=== PATIENT | female | born 1985 | race Caucasian/White ===

== ENCOUNTER 2022-02-03 00:23 | Emergency (ER) | payer SELFPAY ==
[2022-02-03] MEDS ORDERED: TETANUS & DIPHTHERIA TOX,ADULT 0.5 ML VIAL ONE (00:37)
[2022-02-03] MEDS ORDERED: NA CHLORIDE 0.9% 1,000 ML ONE ×2 (00:40→00:53)
[2022-02-03] MEDS ORDERED: NA CHLORIDE 0.9% 250 ML ONE (00:53)
[2022-02-03 01:02] LABS: Hematocrit 32.3 % (36.0-45.0); Lymphocytes % 42.9 % (15.3-44.8); MPV 7.5 fL (7.6-11.3); RBC Red Blood Cell Count 4.53 M/uL (3.86-4.86)
[2022-02-03 01:03] LABS: Protime INR 1.02
[2022-02-03] MEDS ORDERED: ONDANSETRON 4 MG/2 ML VIAL ONE (01:03)
[2022-02-03 01:16] LABS: ALT/SGPT 26 U/L (12-78); AST/SGOT 14 U/L (15-37); Albumin 3.7 g/dL (3.4-5.0); Alkaline Phosphatase 82 U/L (45-117); BUN Blood Urea Nitrogen 12 mg/dL (7-18); Bicarbonate 18 mmol/L (21-32); Bilirubin Total 0.2 mg/dL (0.2-1.0); Glomerular Filtration Rate 72 ml/min (=/>90); Glucose Level 161 mg/dL (74-106); Potassium 3.2 mmol/L (3.5-5.1); Protein, Total 7.3 g/dL (6.4-8.2); Sodium Level 139 mmol/L (136-145)
[2022-02-03 01:18] LABS: Bilirubin Direct < 0.1 mg/dL (0-0.2)
--- NOTE | 2022-02-03 02:07 | EDPHYS ---
Physician Documentation [facility] Name: Joao Juares Age: 36 yrs Sex: Female : 1985 Arrival Date: 02/03/2022 Time: 00:24 Bed 2 Private MD: ED Physician Salazar Escobar HPI: 02/03 01:25 This 36 yrs old Female presents to ER via Wheelchair with complaints of Right arm mh7 injury. 01:25 Patient's family member brought her to ER after he found her laying on floor at her mh7 place with injury and a lot of blood at scene. Patient initially not answering questions and appeared confused in the ER.. 01:25 Trauma demographics: County: The injury occurred in [place] Location of Injury: The mh7 injury occurred at an unknown, Date: February 02, 2022. Mechanism of injury: Penetrating trauma: inflicted by unknown, that penetrated penetrated an unknown depth. Associated injuries: The patient sustained right forearm, laceration, 8 cm(s). Onset: The symptoms/episode began/occurred today, at an unknown time. 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 - Social history:: Smoking status: Patient denies any tobacco usage or history of. Patient uses alcohol, on a daily basis. ROS: 01:25 Constitutional: Negative for fever, chills, and weight loss, Eyes: Negative for injury, mh7 pain, redness, and discharge, ENT: Negative for injury, pain, and discharge, Neck: Negative for injury, pain, and swelling, Cardiovascular: Negative for chest pain, palpitations, and edema, Respiratory: Negative for shortness of breath, cough, wheezing, and pleuritic chest pain, Abdomen/GI: Negative for abdominal pain, nausea, vomiting, diarrhea, and constipation, Back: Negative for injury and pain, : Negative for injury, bleeding, discharge, and swelling, Psych: Negative for depression, anxiety, suicide ideation, homicidal ideation, and hallucinations, Allergy/Immunology: Negative for hives, rash, and allergies, Endocrine: Negative for neck swelling, polydipsia, polyuria, polyphagia, and marked weight changes, Hematologic/Lymphatic: Negative for swollen nodes, abnormal bleeding, and unusual bruising. Exam: 01:25 Head/Face: Normocephalic, atraumatic. Eyes: Pupils equal round and reactive to light, mh7 extra-ocular motions intact. Lids and lashes normal. Conjunctiva and sclera are non-icteric and not injected. Cornea within normal limits. Periorbital areas with no swelling, redness, or edema. ENT: Nares patent. No nasal discharge, no septal abnormalities noted. Tympanic membranes are normal and external auditory canals are clear. Oropharynx with no redness, swelling, or masses, exudates, or evidence of obstruction, uvula midline. Mucous membranes moist. Neck: Trachea midline, no thyromegaly or masses palpated, and no cervical lymphadenopathy. Supple, full range of motion without nuchal rigidity, or vertebral point tenderness. No Meningismus. Chest/axilla: Normal chest wall appearance and motion. Nontender with no deformity. No lesions are appreciated. 01:25 Respiratory: Lungs have equal breath sounds bilaterally, clear to auscultation and percussion. No rales, rhonchi or wheezes noted. No increased work of breathing, no retractions or nasal flaring. Abdomen/GI: Soft, non-tender, with normal bowel sounds. No distension or tympany. No guarding or rebound. No evidence of tenderness throughout. Back: No spinal tenderness. No costovertebral tenderness. Full range of motion. 01:25 Constitutional: The patient appears in obvious distress, moderately distressed, AMS initially then more alert 01:25 Cardiovascular: Rate: tachycardic, Rhythm: regular, Pulses: no pulse deficits are appreciated, Heart sounds: normal, Edema: is not appreciated, JVD: is not appreciated. 01:25 Musculoskeletal/extremity: Extremities: noted in the right forearm: decreased ROM, laceration, ROM: unable to make fist, flex, or extend right hand, Pulses: noted to be 2+ in the right radial artery, Sensation intact. Joints: the right wrist displays unable to extend, flex. 01:25 Skin: injury, laceration(s), the wound is approximately 8 cm(s), of the right forearm, that can be described as no foreign body, jagged, with severe bleeding. 01:25 Neuro: Orientation: to person, place, situation, Mentation: confused, Memory: recent memory is impaired, Cranial nerves: grossly normal, Motor: moves all fours, Sensation: no obvious gross deficits, Gait: not tested. seizure activity, is not displayed by the patient, Abnormal movements: there are no abnormal movements. Vital Signs: 00:20 BP 178 / 155; Pulse 108; Resp 18; Pulse Ox 99% on R/A; Weight 83.91 kg; Height 5 ft. 0 sm5 in. (152.40 cm); 00:30 BP 56 / 31; Pulse 100; Resp 19; Pulse Ox 95% on R/A; sm5 00:32 BP 88 / 52; Pulse 101; Resp 20; Pulse Ox 100% on R/A; sm5 00:45 BP 106 / 64; Pulse 90; Resp 18; Pulse Ox 99% on R/A; sm5 01:15 BP 120 / 81; Pulse 83; Resp 16; Pulse Ox 100% on R/A; sm5 00:20 Body Mass Index 36.13 (83.91 kg, 152.40 cm) 5 Amina Coma Score: 00:20 Eye Response: spontaneous(4). Verbal Response: oriented(5). Motor Response: obeys sm5 commands(6). Total: 15. Trauma Score (Adult): 00:20 Eye Response: spontaneous(1); Verbal Response: oriented(1); Motor Response: obeys sm5 commands(2); Systolic BP: > 89 mm Hg(4); Respiratory Rate: 10 to 29 per min(4); Joppa Score: 15; Trauma Score: 12 MDM: 02:00 Differential diagnosis: closed head injury, extremity fracture, arterial laceration, mh7 tendon laceration. Data reviewed: vital signs, nurses notes, lab test result(s), CBC, electrolytes, radiologic studies, plain films. Data interpreted: Pulse oximetry: on room air is 100 %. Interpretation: normal. Counseling: I had a detailed discussion with the patient and/or guardian regarding: the historical points, exam findings, and any diagnostic results supporting the discharge/admit diagnosis, lab results, the need to transfer to another facility, [facility] does not immediately have the required specialist. Response to treatment: the patient's symptoms have mildly improved after treatment. 02:06 Patient medically screened. [facility] 02/03 00:28 Order name: Basic Metabolic Panel; Complete Time: [facility] 02/03 00:28 Order name: CBC with Diff; Complete Time: : [facility] 02/03 00:28 Order name: Type And Screen [facility] 02/03 00:28 Order name: LFT's; Complete Time: [facility] 02/03 00:28 Order name: Protime (+inr); Complete Time: : [facility] 02/03 00:28 Order name: Ptt, Activated; Complete Time: [facility] 02/03 00:28 Order name: CT Head C Spine [facility] 02/03 00:28 Order name: Test, Serum; Complete Time: : [facility] 02/03 00:28 Order name: ETOH Level; Complete Time: [facility] 02/03 00:28 Order name: Acetaminophen; Complete Time: [facility] 02/03 00:28 Order name: Salicylate; Complete Time: : [facility] 02/03 00:51 Order name: RBC Leukored Pheresis [facility] 02/03 00:28 Order name: XRAY Chest (1 view) [facility] 02/03 00:28 Order name: XRAY Pelvis [facility] 02/03 00:28 Order name: Labs collected and sent; Complete Time: 00:43 [facility] 02/03 00:28 Order name: Forearm Right XRAY [facility] 02/03 00:28 Order name: Urine Dipstick-Ancillary (obtain specimen) [facility] 02/03 00:28 Order name: Cervical Collar [facility] 02/03 00:30 Order name: EKG; Complete Time: 00:30 [facility] 02/03 00:30 Order name: EKG - Nurse/Tech; Complete Time: 01:28 [facility] Administered Medications: 00:50 Drug: Tetanus-Diphtheria Toxoid Adult 0.5 ml {Vocational Rehabilitation Administrator: [employer]. Exp: sm5 11/09/2022. Lot #: [id number]. } Route: IM; Site: left deltoid; Disposition Summary: 02/03/22 02:06 Transfer Ordered Transfer Location: [place] [address] Reason: Higher level of care [facility] Condition: Serious [facility] Problem: new [facility] Symptoms: have improved 7 Accepting Physician: Dr. Brar(02/03/22 02:22) vc1 Diagnosis - Laceration of other blood vessels at forearm level, right arm, initial encounter mh7 - Laceration of other flexor muscle, fascia and tendon at forearm level, right arm, [facility] initial encounter Forms: - Medication Reconciliation Form 7 - SBAR form [facility] Signatures: Dispatcher [employer] EDSalazar Armstrong MD MD 7 Namita Russell RN RN sm5 Laure Kapoor RN RN vc1 Corrections: (The following items were deleted from the chart) 00: This 36 yrs old Female presents to ER via Wheelchair with complaints of Right arm 7 injury. [facility] : Trauma demographics: County: The injury occurred in [place] Location of Injury: [facility] The injury occurred at an unknown, Date: February 02, 2022, [facility] : Mechanism of injury: Penetrating trauma: inflicted by unknown, that penetrated [facility] penetrated an unknown depth, [facility] : Associated injuries: The patient sustained right forearm, laceration, 8 cm(s), [facility] : Onset: The symptoms/episode began/occurred today, at an unknown time. [place] [id number] : Patient's family member brought her to ER after he found her laying on floor at [facility] her place with injury and a lot of blood at scene. Patient initially not answering questions and appeared confused in the ER.. [facility] 00:25 Constitutional: Negative for fever, chills, and weight loss, Eyes: Negative for [facility] injury, pain, redness, and discharge, ENT: Negative for injury, pain, and discharge, Neck: Negative for injury, pain, and swelling, Cardiovascular: Negative for chest pain, palpitations, and edema, Respiratory: Negative for shortness of breath, cough, wheezing, and pleuritic chest pain, Abdomen/GI: Negative for abdominal pain, nausea, vomiting, diarrhea, and constipation, Back: Negative for injury and pain, : Negative for injury, bleeding, discharge, and swelling, Psych: Negative for depression, anxiety, suicide ideation, homicidal ideation, and hallucinations, Allergy/Immunology: Negative for hives, rash, and allergies, Endocrine: Negative for neck swelling, polydipsia, polyuria, polyphagia, and marked weight changes, Hematologic/Lymphatic: Negative for swollen nodes, abnormal bleeding, and unusual bruising, mh7 02:22 02:06 Dr. Brar 7 vc1
--- NOTE | 2022-02-03 02:07 | ER ---
Nurse's Notes [facility] Name: Joao Juares Age: 36 yrs Sex: Female : 1985 Arrival Date: 02/03/2022 Time: 00:24 Bed 2 Private MD: Diagnosis: Laceration of other blood vessels at forearm level, right arm, initial encounter;Laceration of other flexor muscle, fascia and tendon at forearm level, right arm, initial encounter Presentation: 02/03 00:20 Initial Sepsis Screen: Does the patient meet any 2 criteria? No. Patient's initial sm5 sepsis screen is negative. Does the patient have a suspected source of infection? No. Patient's initial sepsis screen is negative. Risk Assessment: Do you want to hurt yourself or someone else? Patient reports no desire to harm self or others. Onset of symptoms was February 03, 2022. 00:20 Acuity: GLORIA 2 5 01:31 Chief complaint: Friend and/or Co-Worker states: found her at home with a large amount sm5 of blood and a large laceration to her R forearm. Coronavirus screen: At this time, the client does not indicate any symptoms associated with coronavirus-19. Ebola Screen: No symptoms or risks identified at this time. 01:31 Method Of Arrival: Wheelchair 5 Triage Assessment: 01:33 General: Appears uncomfortable, Behavior is agitated. Pain: Complains of pain in right sm5 arm. Neuro: Level of Consciousness is awake, alert, obeys commands, Oriented to person, place, time, situation. Injury Description: Laceration sustained to right arm is bleeding profusely, is bleeding profusely at this time. A dressing was applied. tourniquet applied. 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 - Social history:: Smoking status: Patient denies any tobacco usage or history of. Patient uses alcohol, on a daily basis. Screenin:20 Abuse screen: Denies threats or abuse. Denies injuries from another. sm5 00:20 Nutritional screening: No deficits noted. Tuberculosis screening: No symptoms or risk 5 factors identified. Fall Risk Gait- Impaired (20 pts.). Mental Status- Overestimates/Forgets Limitations (15 pts.). Total Andrade Fall Scale indicates Low Risk Score (25-44 pts). Fall prevention measures have been instituted. Placed close to Nursing Station Frequent Obs/Assesments occuring As available Patient and Family Educated on Fall Prevention Program and strategies. Assessment: 00:45 General:. General: diaphoretic. Cardiovascular: Rhythm is sinus rhythm. Respiratory: sm5 Airway is patent Trachea midline Respiratory effort is even, unlabored. Vital Signs: 00:20 BP 178 / 155; Pulse 108; Resp 18; Pulse Ox 99% on R/A; Weight 83.91 kg; Height 5 ft. 0 sm5 in. (152.40 cm); 00:30 BP 56 / 31; Pulse 100; Resp 19; Pulse Ox 95% on R/A; sm5 00:32 BP 88 / 52; Pulse 101; Resp 20; Pulse Ox 100% on R/A; sm5 00:45 BP 106 / 64; Pulse 90; Resp 18; Pulse Ox 99% on R/A; sm5 01:15 BP 120 / 81; Pulse 83; Resp 16; Pulse Ox 100% on R/A; sm5 00:20 Body Mass Index 36.13 (83.91 kg, 152.40 cm) sm5 Amina Coma Score: 00:20 Eye Response: spontaneous(4). Verbal Response: oriented(5). Motor Response: obeys sm5 commands(6). Total: 15. Trauma Score (Adult): 00:20 Eye Response: spontaneous(1); Verbal Response: oriented(1); Motor Response: obeys sm5 commands(2); Systolic BP: > 89 mm Hg(4); Respiratory Rate: 10 to 29 per min(4); Mercer Score: 15; Trauma Score: 12 ED Course: 00:24 Patient arrived in ED. bp1 00:25 Salazar Escobar MD is Attending Physician. mh7 00:28 Namita Russell RN is Primary Nurse. sm5 00:30 Arm band placed on right wrist. sm5 00:30 Placed in gown. Bed in low position. Side rails up X2. sm5 00:43 Inserted saline lock: 18 gauge in left antecubital area, using aseptic technique. Blood sm5 collected. 00:43 Inserted saline lock: 20 gauge in left hand, using aseptic technique. 5 00:57 X-ray completed. Portable x-ray completed in exam room. Patient tolerated procedure 1 poorly. 01:02 XRAY Chest (1 view) In Process Unspecified. EDMS 01:03 XRAY Pelvis In Process Unspecified. EDMS 01:03 Forearm Right XRAY In Process Unspecified. EDMS 01:05 initiated a transfer with Jesenia from [facility]. mw2 01:18 CT Head C Spine In Process Unspecified. EDMS 01:[address] Escobar with the Trauma Doctor from [facility]. mw2 01:33 Triage completed. sm5 01:35 administrative given by Jesenia Fabian/ patient has been accepted to [address] to the ER/ Dr. Brar accepted the patient in transfer/report to be called to [phone]. 01:45 No provider procedures requiring assistance completed. Patient transferred, IV remains [address] Administered Medications: 00:50 Drug: Tetanus-Diphtheria Toxoid Adult 0.5 ml {Food Sales Clerk: [employer]. Exp: sm5 11/09/2022. Lot #: [id number]. } Route: IM; Site: left deltoid; Medication: 00:52 Vaccine Information Statement (VIS) provided today. Questions and/or concerns [facility] addressed. VIS edition date: March 2021. Outcome: 01:45 Transferred by ground EMS to [facility], Transfer form completed. X-rays sent [facility] w/ patient. 01:45 Condition: stable 01:45 Instructed on the need for transfer. 02:06 ER care complete, transfer ordered by MD. ly 02:22 Patient left the ED. vc1 Signatures: Dispatcher [employer] EDMS Delmi Lara 1 Gina Sharpe 2 Antonieta Saldaña Maurice, MD MD 7 Namita Russell RN RN 5 Laure Kapoor RN RN vc1
[2022-02-03 02:37] VITALS: BP 120/81; O2SAT 100
--- NOTE | 2022-02-04 13:36 | EKG ---
Test Date: 2022-02-03 Test Time: 00:48:08 Try On Baster: JAIME MEASUREMENT RESULTS: Intervals: Rate: 93 AL: 170 QRSD: 86 QT: 366 QTc: 455 [place]: P: 54 AL: 170 QRS: 46 T: 43 INTERPRETIVE STATEMENTS: Normal sinus rhythm Normal ECG No previous ECG available for comparison Electronically Signed On 02-04-22 13:34:43 CDT by Sukhdeep Mercer
--- NOTE | 2022-02-04 14:06 | RAD REPORT ---
EXAM DESCRIPTION: CT - Head C Spine Mpr Wo Con - 02/03/2022 2:12 am CLINICAL HISTORY: The patient is 36 years old and is Female; trauma TECHNIQUE: Axial computed tomography images of the head/brain and cervical spine without intravenous contrast. Sagittal and coronal reformatted images were created and reviewed. This CT exam was pe rformed using one or more of the following dose reduction techniques: automated exposure control, a djustment of the mA and/or kV according to patient size, and/or use of iterative reconstruction techn ique. DLP: 1355 mGy*cm COMPARISON: None. FINDINGS: BRAIN: Unremarkable. No hemorrhage. No significant white matter disease. No edema . VENTRICLES: Unremarkable. No ventriculomegaly. SKULL: No acute fracture. SINUSES: Unremarkable as visualized. No acute sinusitis. MASTOID AIR CELLS: Unremarkable as visualized. No mastoid effusion. VERTEBRAE: Unremarkable. No acute fracture. Normal alignment. DISCS/SPINAL CANAL/NEURAL FORAMINA: No acute findings. No spinal canal stenosis. SOFT TISSUES: Unremarkable. LUNG APICES: Visualized lung zones are clear. IMPRESSION: 1. No acute intracranial abnormality. 2. No acute cervical spine fracture or subluxation. Electronically signed by: Michael Dejesus DO 02/03/2022 1:32 AM CDT Due to temporary technical issues with the PACS/Fluency reporting system, reports are being signed by the in house radiologist without review as a courtesy to ensure prompt reporting. The interpreting r adiologist is fully responsible for the content of the report.
--- NOTE | 2022-02-04 14:07 | RAD REPORT ---
EXAM DESCRIPTION: RAD - Pelvis - 02/03/2022 1:01 am CLINICAL HISTORY: 36 years, Female, TRAUMA COMPARISON: None. FINDINGS: 1 single frontal view of the pelvis was obtained. The pelvic brim is intact. No areas of a cute bony injuries were demonstrated. No gross soft tissue abnormality is identified. There are n o gross intraosseous lesions. No periosteal reaction were seen. Bilateral hip joints are unremark able. Visualized gas pattern is nondiagnostic. Visualized portions of the lower lumbar spine are norm al. Sacrum secondary joints are normal. IMPRESSION: No acute bony injuries were demonstrated. Electronically signed by: Floyd Sterling MD 02/03/2022 1:12 AM CDT Due to temporary technical issues with the PACS/Fluency reporting system, reports are being signed by the in house radiologist without review as a courtesy to ensure prompt reporting. The interpreting r adiologist is fully responsible for the content of the report.
--- NOTE | 2022-02-04 14:09 | RAD REPORT ---
EXAM DESCRIPTION: RAD - Chest Single View - 02/03/2022 1:01 am CLINICAL HISTORY: 36 years, Female, TRAUMA COMPARISON: None. FINDINGS: Single view of the chest was obtained portable. No prior films are available for compariso n. The cardiomediastinal silhouette demonstrate to be unremarkable. The heart is not enlarged. The thoracic aorta is unremarkable. Costophrenic angles are sharp. No areas of consolidation or masses are seen. There is no evidence for pneumothorax. There is no evidence for significant displace rib fr actures. The rest of the soft tissue and bony structures demonstrate to be unremarkable. IMPRESSION: No acute cardiopulmonary abnormality is seen. Electronically signed by: Floyd Sterling MD 02/03/2022 1:11 AM CDT Due to temporary technical issues with the PACS/Fluency reporting system, reports are being signed by the in house radiologist without review as a courtesy to ensure prompt reporting. The interpreting r adiologist is fully responsible for the content of the report.
--- NOTE | 2022-02-04 14:11 | RAD REPORT ---
EXAM DESCRIPTION: RAD - Forearm Right - 02/03/2022 1:01 am CLINICAL HISTORY: 36 years, Female, Trauma COMPARISON: None. FINDINGS: 2 X-ray views of the left forearm (frontal lateral views) were performed. No acute bony injuries were demonstrated. No gross articular abnormality is identified. There are no gross intraosseous lesions. No periosteal reaction were seen. There is a mid/proximal lateral aspect left forearm soft tissue area of gap-laceration. No radiopaque foreign body. IMPRESSION: No acute bony injuries were demonstrated. Soft tissue laceration. Electronically signed by: Floyd Sterling MD 02/03/2022 1:13 AM CDT Due to temporary technical issues with the PACS/Fluency reporting system, reports are being signed by the in house radiologist without review as a courtesy to ensure prompt reporting. The interpreting r adiologist is fully responsible for the content of the report.
== END 2022-02-03 02:22 | disposition short-term general hospital (02) ==
LOC: ER 00:23 → EDBD 00:23 → ER 02:22
DX: S55 Injury of blood vessels at forearm level (principal); S56.221A Laceration of other flexor muscle, fascia and tendon at forearm level, right arm, initial encounter; Z23 Encounter for immunization
CPT/HCPCS: 36415; 70450; 71045; 72125; 72170; 80048; 80076; 80320; 80329; 84703; 85025; 85610; 85730; 86850; 86900; 86901; 90471; 90714; 93005; 99285; J2405; J7030; J7050; P9016